=== PATIENT | female | born 1985 | race Caucasian/White ===

== ENCOUNTER → 2017-07-14 | Outpatient (REF) | LOC: ZLAB.WCH 18:08 | DX: Z01.89 Encounter for other specified special examinations (principal) ==

== ENCOUNTER 2022-01-23 06:33 | Inpatient (IN) | payer MEDICAID ==
[2022-01-23] VITALS (67 sets, daily range): BP systolic 107–156; BP diastolic 55–88; PULSE 66–93; TEMP 97.8–98.6
[~2022-01-23] VITALS: Ht 170.2 cm; Wt 85.0 kg
--- NOTE | 2022-01-23 06:40 | NUR ---
0640 PT AMBULATORY TO UNIT WITH LIFE PARTNER, ROSLYN. PT CHANGED INTO A GOWN AND COMFORTABLE IN BED. TOCO AND EFM TRACING STARTED AT THIS TIME. PLAN ON CARE DISCUSSED AT THIS TIME. DENIES LEAKING OF FLUID AND CONTRACTIONS. POSITIVE MOVEMENT. EFM TRACING CATEGORY 1 AT THIS TIME. 0715 INITIAL SVE /-2 POSTERIOR. WILL RESUME WITH POC PER PROTOCOL.
[2022-01-23] MEDS ORDERED: NATURAL IRON65 MG (07:12)
[2022-01-23] MEDS ORDERED: PRENATAL TABLET PO (07:12)
[2022-01-23] MEDS ORDERED: TYLENOL 325MG325 MG PO (07:13)
[2022-01-23 07:15] LABS: HEMOGLOBIN 11.3 g/dl (12.5-16.0); MEAN CELL VOLUME 84 fl (80.0-100.0); MEAN CORPUSCULAR HEMOGLOBIN 28 pg (27-31); MEAN CORPUSCULAR HGB CONC 33 g/dl (33.0-37.0); MEAN PLATELET VOLUME 10.3 fl (7.4-10.4); PLATELET COUNT 233 K/mm3 (130-400); RED BLOOD COUNT 4.05 M/mm3 (4.10-5.30); REDCELL DISTRIBUTION WIDTH-CV 16.4 % (11.5-14.5)
[2022-01-23 07:22] LABS: HEMATOCRIT 34.2 % (37.0-47.0)
--- NOTE | 2022-01-23 08:04 | NUR ---
PT UP TO BATHROOM, TEMPORARILY OFF EFM. EFM TRACING CATEGORY 1 BEFORE AND AFTER BATHROOM.
[2022-01-23 08:12] LABS: BAND 8 % (0-10); LYMPHOCYTE 26 % (20.0-51.0); METAMYELOCYTE 1 % (0-0); NEUTROPHILS 64 % (42.0-75.2)
[2022-01-23 08:13] LABS: PLATELET ESTIMATE NORMAL (NORMAL)
--- NOTE | 2022-01-23 09:40 | NUR ---
ROLES AT BEDSIDE. SVE 1-2/-3. UNABLE TO AROM AT THIS TIME. CATEGORY 1 EFM TRACING. CONTRACTIONS Q2-3 MINUTES APART. FIRM WITH PALPATION. PT REQUESTING EPIDURAL AT THIS TIME. WILL NOTIFY NAI MASTERS.
--- NOTE | 2022-01-23 10:10 | NUR ---
1010 PT TO SITTING POSITION ON EDGE OF BED FOR EPIDURAL PLACEMENT. DIFFICULTY TRACING EFM AND TOCO DUE TO MATERNAL POSITIONING. CTX CONTINUE Q2-3 MINUTES, FIRM WITH PALPATION. EFM CATEGORY 1 TRACING PRIOR TO POSITION CHANGE. LR BOLUS INFUSING PER PROTOCOL. MATERNAL VITAL SIGNS STABLE. 1017 SINGLE SHOT PER NAI MASTERS. PT TOLERATED PROCEDURE WELL. 1034 PT HYPOTENSIVE, 91/46. BLOOD PRESSURE CORRECTED WITH IV EPHEDRINE X1. EFM CATEGORY 1 TRACING THROUGHOUT THIS EVENT. 1038 MATERNAL VITAL SIGNS STABLE. DENIES SYMPTOMS OF HYPOTENSION. WILL CONTINUE TO MONITOR.
--- NOTE | 2022-01-23 11:40 | NUR ---
ROLES AT BEDSIDE. UPDATED ON RECENT SVE BY MARÍA SILVA, /2. VORB PER ROLES TO INCREASE PITOCIN TO 30MU IF NEEDED FOR CONTRACTION PATTERN. PATIENT PLACED IN RIGHT LATERAL POSITION ON PEANUT BALL. NO FURTHER NEW ORDERS AT THIS TIME. WILL CONTINUE TO MONITOR.
--- NOTE | 2022-01-23 11:45 | NUR ---
1112 PT HYPOTENSIVE, BLOOD PRESSURE 86/48. GIVEN SECOND DONE OF IV EPHEDRINE AT THIS TIME. BLOOD PRESSURE BEGINS TO RECOVER. EFM TRACING CATEGORY 1 DURING THIS EPISODE.
--- NOTE | 2022-01-23 13:12 | NUR ---
0954 PT UP TO BATHROOM, OFF EFM TEMPORARILY. EFM TRACING CATEGORY 1 BEFORE AND AFTER BATHROOM.
--- NOTE | 2022-01-23 13:47 | NUR ---
CATEGORY 1 EFM TRACING. DIFFICULTY TRACING TOCO DUE TO MATERNAL POSITIONING. FIRM CONTRACTIONS PALPATED AT BEDSIDE BY THIS NURSE Q2-3 MINUTES. INTERMITTENTLY TRACING FHT'S AT UMBILICUS OR ABOVE, CURRENTLY TRACING FHT IN RIGHT LOWER QUADRANT. PITOCIN RUNNING AT 30MU PER ORDER. SVE REMAINS UNCHANGED AT THIS TIME, SEE PHYSICIAN NOTIFICATION.
--- NOTE | 2022-01-23 16:20 | NUR ---
1620 ROLES AT BEDSIDE FOR SVE AND AROM. SVE /-1. AROM BLOOD STAINED WITH NO ODOR. PT TOLERATED PROCEDURE WELL. EFM CATEGORY 1 TRACING THROUGHOUT THIS ENCOUNTER.
--- NOTE | 2022-01-23 17:30 | NUR ---
SVE 2-3/80/-1. LARGE AMOUNT OF CLEAR FLUID NOTED WITH CHECK. PT STATES SHE IS "STARTING TO FEEL LIKE HER CONTRACTIONS ARE GETTING STRONGER." VITAL SIGNS REMAIN STABLE. CATEGORY 1 EFM TRACING AT THIS TIME. FIRM CONTRACTIONS PALPATED AT BEDSIDE BY THIS RN Q2-3MIN.
[2022-01-24] VITALS (32 sets, daily range): BP systolic 93–136; BP diastolic 52–78; PULSE 72–109; TEMP 97.5–99.1
--- NOTE | 2022-01-24 05:15 | NUR ---
0428 - PATIENT FEELING CONSTANT RECTAL PRESSURE; SVE PERFORMED - COMPLETE +1. 0434 - PRACTICE PUSH PERFORMED AND PATIENT MOVES THE BABY WELL. 0437 - ROLES CALLED WITH UPDATE WITH PLANS TO PRESENT TO THE BEDSIDE. 0441 - SAMUEL DISCONTINUED 0446 - PUSHING INITIATED; PATIENT PUSHING WELL 0457 - ROLES AT BEDSIDE; PATIENT 0502 - EPISIOTOMY CUT 0503 - OF VIABLE FEMALE INFANT 0515 - SPONTANEOUS DELIVERY OF PLACENTA; PIT BOLUS STARTED 0520 - 800MCG OF RECTAL CYTOTEC GIVEN
[2022-01-25 07:27] VITALS: BP 120/77; PULSE 71; TEMP 97.8
[2022-01-25] MEDS ORDERED: IBU800 M1 PO (09:30)
--- NOTE | 2022-01-25 11:47 | NUR ---
Reason for consult: RICARDO De Santiago informed SW that pt recieved a phone call while in labor from [facility] about her older two children and needed support. SW spoke with pt and pt informed SW that DCF was calling about setting up a conference call for her older children for truancy. pt reports everything is okay. SW asked pt if she needed any resources and she denied. No other needs at this time.
--- NOTE | 2022-01-25 13:06 | NUR ---
PATIENT PROVIDED DISCHARGE INSTRUCTIONS.
== END 2022-01-25 13:15 | disposition home or self-care (01) | DRG 807 ==
LOC: LDR 06:33 → OB 01-24 08:45
PROVIDERS: ADMIT Obstetrics & Gynecology
PROC: 10907ZC Drainage of Amniotic Fluid, Therapeutic from Products of Conception, Via Natural or Artificial Opening (ICD-10-PCS; 2022-01-23)
PROC: 3E033VJ Introduction of Other Hormone into Peripheral Vein, Percutaneous Approach (ICD-10-PCS; 2022-01-23)
PROC: 10E0XZZ Delivery of Products of Conception, External Approach (ICD-10-PCS; principal; 2022-01-24)
PROC: 0W8NXZZ Division of Female Perineum, External Approach (ICD-10-PCS; 2022-01-24)
DX: O48.0 Post-term pregnancy (principal); Z37.0 Single live birth; O99.334 Smoking (tobacco) complicating childbirth; Z3A.40 40 weeks gestation of pregnancy
CPT/HCPCS: J1200; J2405; J2590; J7120